=== PATIENT | male | born 1960 | race Caucasian/White ===

== ENCOUNTER → 2017-02-25 | Outpatient (CLI) | payer MEDICARE ==
[2017-02-25 07:24] LABS: Anion Gap 12 mmol/L; Blood Urea Nitrogen 15 mg/dL (9-20); Calcium 9.8 mg/dL (8.4-10.2); Carbon Dioxide 29 mmol/L (22-30); Chloride 104 mmol/L (98-107); Glucose 92 mg/dL (74-99); Magnesium 1.9 mg/dL (1.6-2.3); Non-African American GFR(MDRD) >60 (>60 ml/min/1.73 sqM); Phosphorous 4.1 mg/dL (2.5-4.5); Potassium 4.9 mmol/L (3.5-5.1); Sodium 145 mmol/L (137-145)
[2017-02-25 12:19] LABS: Hemoglobin A1C 5.6 % (4.2-6.1)
== END | disposition home or self-care (01) ==
LOC: LABWHC1 06:36
PROVIDERS: ATTEND Internal Medicine
DX: E11.9 Type 2 diabetes mellitus without complications (principal); I10 Essential (primary) hypertension
CPT/HCPCS: 36415; 80048; 83036; 83735; 83970; 84100

== ENCOUNTER → 2017-04-29 | Outpatient (CLI) | payer MEDICARE ==
--- NOTE | 2017-04-29 11:01 | XR ---
EXAMINATION TYPE: XR chest 2V DATE OF EXAM: 04/29/2017 COMPARISON: 06/15/2014 TECHNIQUE: PA and lateral views submitted. HISTORY: Cough FINDINGS: Cardiac device noted. Arthropathy of the shoulders. Hypertrophic and degenerative change of the spine . Subsegmental retrocardiac density on the left. IMPRESSION: 1. Subsegmental consolidation medial aspect left lung base. Correlate for atelectasis versus early in filtrate..
[2017-04-29 11:03] LABS: Basophils # (A) 0.1 k/uL (0-0.2); Basophils % (A) 0 %; CH 28.7; CHCM 32.2; Eosinophils # (A) 0.1 k/uL (0-0.7); Eosinophils % (A) 1 %; HCT 44.1 % (39.0-53.0); HDW 2.63; HGB 14.2 gm/dL (13.0-17.5); Luc # (Auto) 0.23; Luc % (Auto) 2; Lymphocytes # (A) 1.4 k/uL (1.0-4.8); Lymphocytes % (A) 10 %; MCHC 32.3 g/dL (31.0-37.0); MCV 89.9 fL (80.0-100.0); Mean Platelet Volume 7.1; Monocytes # (A) 1.1 k/uL (0-1.0); Monocytes % (A) 8 %; Neutrophils # (A) 10.9 k/uL (1.3-7.7); Neutrophils % (A) 79 %; RBC 4.91 m/uL (4.30-5.90); RDW 13.8 % (11.5-15.5); WBC 13.8 k/uL (3.8-10.6); WBC (Perox) 12.61
[2017-04-29 11:34] LABS: Anion Gap 13 mmol/L; Blood Urea Nitrogen 16 mg/dL (9-20); Calcium 9.1 mg/dL (8.4-10.2); Carbon Dioxide 27 mmol/L (22-30); Chloride 101 mmol/L (98-107); Glucose 107 mg/dL (74-99); Non-African American GFR(MDRD) >60 (>60 ml/min/1.73 sqM); Potassium 4.4 mmol/L (3.5-5.1); Sodium 141 mmol/L (137-145)
== END | disposition home or self-care (01) ==
LOC: LABWHC1 10:35
PROVIDERS: ATTEND Internal Medicine
DX: R91.8 Other nonspecific abnormal finding of lung field (principal); J06.9 Acute upper respiratory infection, unspecified; J18.9 Pneumonia, unspecified organism
CPT/HCPCS: 36415; 71020; 80048; 85025; 87070; 87205

== ENCOUNTER → 2017-07-19 | Outpatient (CLI) | payer MEDICARE ==
--- NOTE | 2017-07-24 16:19 | XR ---
EXAMINATION TYPE: XR knee complete LT DATE OF EXAM: 07/19/2017 COMPARISON: NONE HISTORY: Left knee pain TECHNIQUE: 4 view left knee FINDINGS: There is narrowing of the medial compartment joint space. Medial tibial plateau spurring is present. Medial femoral condylar spurring is present. No joint effusion is evident. No acute fractur es are evident. IMPRESSION: 1. Osteoarthritic degenerative change medial compartment left knee
== END | disposition home or self-care (01) ==
LOC: RADXRMAIN 10:04
PROVIDERS: ATTEND Internal Medicine
DX: M17.12 Unilateral primary osteoarthritis, left knee (principal)

== ENCOUNTER → 2017-08-26 | Outpatient (CLI) | payer MEDICARE ==
--- NOTE | 2017-08-26 10:35 | CT ---
EXAMINATION TYPE: CT cervical spine wo con DATE OF EXAM: 08/26/2017 COMPARISON: NONE HISTORY: Numbness down both arms CT DLP: 444.8 mGycm Automated exposure control for dose reduction was used. TECHNIQUE: CT scan of the cervical spine is obtained without contrast, axial images are obtained, sagittal and c oronal reformatted images are also reviewed. FINDINGS: Cervical vertebral bodies show preserved height and alignment. Some degenerative changes present at t he C1-2 articulation. Cervical spine is visualized in its entirety from C1 through upper thoracic levels, demonstrates sati sfactory alignment without evidence of acute fracture or dislocation. Prevertebral soft tissue appea rs within normal limits. The C1-C2 articulation is within normal limits on the coronal images. Calci fications within the pharyngeal soft tissues compatible with chronic infection. Minimal emphysematous change is suspected at the lung apices. C2-3: Unremarkable C3-4: Small central posterior disc protrusion causes slight anterior mass effect on the thecal sac. C4-5: There is a central posterior disc herniation present with anterior mass effect on the thecal sa c. There is mild central stenosis. No significant foraminal encroachment C5-6: There is posterior extension of endplate disc complex, moderate central stenosis. Lateral exten [place]anish of endplate disc complex causes foraminal encroachment bilaterally left greater than right. C6-7: Posterior extension of endplate disc complex, posterior disc herniation results in moderate ander tral canal stenosis. Bilateral foraminal encroachment is present right greater than left. C7-T1: Within normal limits IMPRESSION: Degenerative disc disease, multilevel foraminal encroachment as described.
--- NOTE | 2017-08-26 11:00 | CT ---
EXAMINATION TYPE: CT lumbar spine wo con DATE OF EXAM: 08/26/2017 COMPARISON: NONE HISTORY: Back pain that radiates down left leg CT DLP: 1024.4 mGycm Automated exposure control for dose reduction was used. An unenhanced CT of the lumbar spine was performed. Bone and soft tissue window settings are submitt ed as well as coronal and sagittal reconstructions. FINDINGS: L1-2: Circumferential extension of endplate disc complex results in minimal foraminal encroachment. P osterior broad-based disc bulge causes slight anterior mass effect on the thecal sac. L2-3: Loss of disc height is present. There is facet arthropathy change. Circumferential posterior di sc bulge results in anterior mass effect on the thecal sac, there is trefoil appearance of the thecal sac. Mild to moderate central stenosis. L3-4: Posterior extension of endplate disc complex causes anterior mass effect on the thecal sac. The re is an eccentric appearance towards the right causing anterolateral mass effect in the thecal sac, some mild right-sided foraminal encroachment is suspected. No significant central stenosis. There is associated loss of disc height. L4-5: Left posterior paracentral disc herniation causes anterolateral mass effect on the thecal sac. Circumferential extension of broad-based disc bulge encroaches mildly on the neural foramina. Only mi ld central stenosis. There is facet arthropathy change. L5-S1: Facet arthropathy changes are present. Circumferential extension of endplate disc complex with minimal anterolisthesis grade 1 L5-S1 encroaches mildly on the neural foramina. Circumferential post erior disc bulge may contact the proximal S1 nerve roots, anterior thecal sac. Postop changes are noted to the stomach. Leads present within the heart. IMPRESSION: Degenerative disc disease, foraminal encroachment as described. Additional findings above.
== END | disposition home or self-care (01) ==
LOC: RADCTMAIN 09:45
PROVIDERS: ATTEND Psychiatry & Neurology Neurology
DX: M51.36 Other intervertebral disc degeneration, lumbar region (principal); M50.30 Other cervical disc degeneration, unspecified cervical region
CPT/HCPCS: 72125; 72131

== ENCOUNTER → 2017-10-17 | Outpatient (CLI) | payer MEDICARE ==
[2017-10-17 07:40] LABS: Basophils % (A) 0 %; CH 28.4; CHCM 32.5; Eosinophils # (A) 0.1 k/uL (0-0.7); Eosinophils % (A) 2 %; HCT 44.9 % (39.0-53.0); HDW 2.73; HGB 14.5 gm/dL (13.0-17.5); Luc # (Auto) 0.11; Luc % (Auto) 2; Lymphocytes # (A) 1.3 k/uL (1.0-4.8); Lymphocytes % (A) 20 %; MCH 28.4 pg (25.0-35.0); MCHC 32.3 g/dL (31.0-37.0); Mean Platelet Volume 7.2; Monocytes # (A) 0.4 k/uL (0-1.0); Monocytes % (A) 6 %; Neutrophils # (A) 4.5 k/uL (1.3-7.7); Neutrophils % (A) 70 %; RBC 5.11 m/uL (4.30-5.90); RDW 13.8 % (11.5-15.5); WBC 6.4 k/uL (3.8-10.6)
[2017-10-17 07:43] LABS: INR 3.2 (<1.2); Prothrombin Time 31.5 sec (9.0-12.0)
[2017-10-17 09:45] LABS: ALT 30 U/L (21-72); AST 32 U/L (17-59); Alkaline Phosphatase 72 U/L (38-126); Anion Gap 8 mmol/L; Blood Urea Nitrogen 9 mg/dL (9-20); C Reactive Protein <5.0 mg/L (<10.0); Calcium 9.3 mg/dL (8.4-10.2); Carbon Dioxide 30 mmol/L (22-30); Chloride 104 mmol/L (98-107); Cholesterol 209 mg/dL (<200); Creatine Kinase 172 U/L (55-170); Glucose 97 mg/dL (74-99); HDL Cholesterol 54 mg/dL (40-60); Magnesium 1.9 mg/dL (1.6-2.3); Non-African American GFR(MDRD) >60 (>60 ml/min/1.73 sqM); Potassium 4.7 mmol/L (3.5-5.1); Sodium 142 mmol/L (137-145); Total Protein 7.4 g/dL (6.3-8.2)
[2017-10-17 10:12] LABS: Prostate Specific Antigen 1.71 ng/mL (0.00-4.00)
[2017-10-17 12:20] LABS: Erythrocyte Sedimentation Rate 6 mm/hr (0-15)
== END | disposition home or self-care (01) ==
LOC: LABWHC1 06:35
PROVIDERS: ATTEND Internal Medicine
DX: Z00.00 Encounter for general adult medical examination without abnormal findings (principal); N40.0 Benign prostatic hyperplasia without lower urinary tract symptoms; E11.9 Type 2 diabetes mellitus without complications; E78.5 Hyperlipidemia, unspecified; I10 Essential (primary) hypertension; E55.9 Vitamin D deficiency, unspecified
CPT/HCPCS: 36415; 80053; 80061; 82306; 82550; 83036; 83735; 84153; 84550; 85025; 85610; 85652; 86140

== ENCOUNTER → 2019-10-26 | Outpatient (CLI) | payer MEDICARE ==
--- NOTE | 2019-10-26 11:00 | XR ---
EXAMINATION TYPE: XR knee complete LT DATE OF EXAM: 10/26/2019 CLINICAL HISTORY: Left knee pain with no known injury TECHNIQUE: Three views of the left knee are obtained. COMPARISON: None. FINDINGS: There is no acute fracture/dislocation evident in left knee. The tri-compartment joint sp aces appear alignment. There is severe joint space narrowing of the medial compartment with bone-on-b one articulation of the tibia and femur. Moderate osteophytes are seen in the medial compartment with small lateral compartment osteophytes and patellofemoral osteophytes. Densities of the femur and the lateral and medial condyles likely represent bone islands. Patellofemoral compartment narrowing is a lso seen. No sizable joint effusion. The overlying soft tissue appears unremarkable. IMPRESSION: 1. No acute fracture or dislocation in the left knee. 2. Severe medial compartment arthropathy and mild lateral compartment as well as patellofemoral maco rtment arthropathy.
== END ==
LOC: RADXRMAIN 09:06
PROVIDERS: ATTEND Internal Medicine
DX: M12.862 Other specific arthropathies, not elsewhere classified, left knee (principal)

== ENCOUNTER → 2021-04-24 | Outpatient (CLI) | payer MEDICARE ==
[2021-04-24 08:36] LABS: Creatinine,Urine Random 44.7 mg/dL; Protein/Creatinine Ratio,Urine 0.291
[2021-04-24 10:26] LABS: Basophils # (A) 0.04 X 10*3/uL (0.00-0.10); Basophils % (A) 0.8 %; Eosinophils # (A) 0.14 X 10*3/uL (0.04-0.35); Eosinophils % (A) 2.6 %; HCT 41.5 % (39.6-50.0); HGB 12.7 g/dL (13.0-17.0); Lymphocytes # (A) 1.09 X 10*3/uL (0.90-5.00); Lymphocytes % (A) 20.6 %; MCH 25.1 pg (27.0-32.0); MCHC 30.6 g/dL (32.0-37.0); MCV 82.2 fL (80.0-97.0); Mean Platelet Volume 10.9 fL (9.5-12.2); Monocytes # (A) 0.71 X 10*3/uL (0.20-1.00); Monocytes % (A) 13.4 %; Neutrophils # (A) 3.31 X 10*3/uL (1.80-7.70); Neutrophils % (A) 62.4 %; Platelet Count 263 X 10*3/uL (140-440); RBC 5.05 X 10*6/uL (4.40-5.60); RDW 15.5 % (11.5-14.5)
[2021-04-24 13:19] LABS: Erythrocyte Sedimentation Rate 12 mm/Hr (0-20)
[2021-04-24 19:03] LABS: ALT 17 U/L (10-49); AST 33 U/L (14-35); African American GFR (CKD) 114.1 (60.0-200.0); Albumin/Globulin Ratio 1.61 (1.60-3.17); Alkaline Phosphatase 86 U/L (41-126); C Reactive Protein <0.4 mg/dL (0.0-0.8); Calcium 9.2 mg/dL (8.7-10.3); Carbon Dioxide 25.8 mmol/L (21.6-31.8); Chloride 107 mmol/L (96-109); Chol/HDL Ratio 3.31; Cholesterol 159 mg/dL (0-200); Creatine Kinase 245 U/L (35-257); Globulin 2.8 g/dL (1.6-3.3); Glucose 155 mg/dL (70-110); LDL Cholesterol,Calculated 98.6 mg/dL (0.0-131.0); Non-African American GFR(CKD) 98.5 (60.0-200.0); Potassium 4.7 mmol/L (3.5-5.5); Sodium 141 mmol/L (135-145); Total Bilirubin 0.8 mg/dL (0.3-1.2); Total Protein 7.3 g/dL (6.2-8.2)
[2021-04-24 19:10] LABS: Prostate Specific Antigen 1.8 ng/mL (0.0-3.5)
[2021-04-24 20:46] LABS: Microalbumin Creatinine Ratio <30 mg/g Creat (0-30); Urine Creatinine 42.7 mg/dL
== END | disposition home or self-care (01) ==
LOC: LABWHC1 07:20
PROVIDERS: ATTEND Internal Medicine
DX: E11.65 Type 2 diabetes mellitus with hyperglycemia (principal); N40.0 Benign prostatic hyperplasia without lower urinary tract symptoms; I10 Essential (primary) hypertension; E87.8 Other disorders of electrolyte and fluid balance, not elsewhere classified; E78.5 Hyperlipidemia, unspecified; E66.9 Obesity, unspecified; M81.0 Age-related osteoporosis without current pathological fracture; R80.9 Proteinuria, unspecified; E55.9 Vitamin D deficiency, unspecified
CPT/HCPCS: 36415; 80053; 80061; 82043; 82272; 82306; 82550; 82570; 83036; 84153; 84156; 85025; 85652; 86140